=== PATIENT | female | born 2000 | race Caucasian/White ===

== ENCOUNTER 2018-11-03 15:32 | Emergency (ER) | payer OTHER ==
[~2018-11-03 15:32] MED LIST: Iopamidol 370 76% 100 ML VIAL ONE
[2018-11-03] MEDS ORDERED: Ondansetron PF 4 MG/2 ML Vial ONE ×2 (15:52→17:48)
[2018-11-03] MEDS ORDERED: Morphine 4 MG/ML VIAL ONE ×2 (15:52→17:27)
[2018-11-03 16:23] LABS: Anion Gap 15 mmol/L (10-20); BUN (Urea Nitrogen) 7 mg/dL (8.4-21.0); Calc. Creatinine Clearance 0 mL/min (70-130); Calcium 9.4 mg/dL (7.8-10.44); Carbon Dioxide 20 mmol/L (22-29); Chloride 107 mmol/L (98-107); Estimated GFR-MDRD Greater than 90; Glucose 101 mg/dL (70-105); Potassium 3.3 mmol/L (3.5-5.1); Sodium 139 mmol/L (136-145)
[2018-11-03 16:33] LABS: #Basophils 0.1 thou/uL (0.0-0.2); #Eosinphils 0.1 thou/uL (0.0-0.7); #Lymphocytes 1.4 thou/uL (1.20-3.40); #Monocytes 0.3 thou/uL (0.11-0.59); #Neutrophils 5.6 thou/uL (1.40-6.50); %Basophils 0.8 % (0.0-1.0); %Eosinophils 1.1 % (0.0-10.0); %Lymphocytes 18.9 % (28.0-48.0); %Monocytes 4.2 % (0.0-4.0); Anisocytosis SLIGHT = 6-15 cells (100X) (0-5/hpf); Elliptocytes SLIGHT = 2-5 cells (100X) (0-1/hpf); Hemoglobin 10.6 g/dL (12.0-16.0); Hypochromia SLIGHT = 6-15 cells (100X) (0-5/hpf); MDiff Complete? YES; Mean Corpuscular HGB CONC 32.5 g/dL (32.0-36.0); Mean Corpuscular Hemoglobin 22.9 pg (25.0-35.0); Mean Corpuscular Volume 70.4 fL (78.0-98.0); Mean Platelet Volume 8.7 fL (7.4-10.4); Platelet Count 267 thou/uL (130-400); Platelet Morphology Comment Appears Adequate; Red Blood Cell (RBC) Count 4.64 mill/uL (4.00-5.20); White Blood Cell (WBC) Count 7.5 thou/uL (4.8-10.8)
[2018-11-03 17:15] LABS: BHCG - Serum Negative (NEGATIVE); Pregs Control Background? CLEAR/WHITE (CLR/WHITE); Pregs Control Bar Appear? YES (CONTROL BAR)
[2018-11-03 17:46] LABS: Bilirubin Negative (Negative); Blood, Urine Large (Negative); Clarity Clear (Clear); Glucose, Urine (Dipstick) Negative (Negative); Leukocyte Negative (Negative); Nitrite Negative (Negative); Protein, Urine (Dipstick) Negative (Neg-Trace); Urobilinogen 0.2 mg/dL (Less than 2)
[2018-11-03 17:55] LABS: Bacteria/HPF 1+ HPF (None Seen); RBC/HPF 0-3 HPF (0-3); Squamous Epithelial 0-3 HPF (0-3); WBC/HPF 0-3 HPF (0-3)
--- NOTE | 2018-11-03 19:01 | CT ---
CT ABDOMEN AND PELVIS WITH IV CONTRAST: HISTORY: Trauma, straddle injury. The patient sustained a straddle injury, jumping into a swimming pool, stri eda her right vulva against the pool edge. Increased swelling and pain since that time, an hour ago . FINDINGS: The lung bases are clear. The liver, spleen, pancreas, adrenal glands, and kidneys are normal. The gallbladder is intact. No free air is seen. There is a small amount of free fluid in the pelvis. U terus and ovaries are present. There is scoliosis of the spine without evidence of fracture or subluxation. The pelvis bones are in tact. There is fluid in the soft tissues of the vulvar region, right greater than left, suspicious for hemo rrhage. IMPRESSION: 1. No CT evidence of solid organ injury. 2. Small amount of free fluid in the pelvis. 3. Fluid/hemorrhage in the soft tissues of the vulva. POS: [facility]
== END 2018-11-03 20:52 | disposition home or self-care (01) ==
LOC: SCSER 15:32 → ERS 20:52
DX: S30.23XA Contusion of vagina and vulva, initial encounter (principal)
CPT/HCPCS: 36415; 74177; 80048; 81003; 81015; 84703; 85025; J2270; J2405; Q9967